=== PATIENT | male | born 2000 | race Caucasian/White ===

== ENCOUNTER 2023-01-07 12:52 | Outpatient (AMB) | payer OTHER, SELFPAY ==
[2023-01-07 13:44] VITALS: BP 130/72; PULSE 87; TEMP 36.2; O2SAT 99; BMI 17.1
--- NOTE | 2023-01-07 13:44 | AM.OFFWIN_ITS ---
Intake Vital Signs 01/07/23 13:44 Height 6 ft 1 in Weight 130 lb BMI 17.1 BP 130/72 Blood Pressure Location Lt brachial Position Sitting Pulse 87 Pulse Source Pulse Oximeter Temp 97.2 F Temp Source Temporal Artery Scan Pulse Oximetry (%) 99 Oxygen Delivery Method Room Air Intake Visit Reasons: [employer], groin pain [phone] Intake Note: pt is here for c/o groin pain Patient Tobacco Use Status: Never used Tobacco Allergies No Known Allergies Allergy (Verified 01/07/23 13:52) Do you need a note to return to daycare/school/sports/work: Yes HPI [employer], groin pain [phone] HPI Details Patient is a 22-year-old male in for a sick visit. Patient reports left-sided scrotal pain which began 6 hours prior to visit. Patient reports no difficulty urinating or numbness. Cremasteric reflex is present. No relief with scrotal support. Patient has not taken any medications. Patient reports pain increases with movement. [facility] Medical History (Updated 01/07/23 @ 14:50 by OSMEL Kennedy) Epididymitis Social History Patient Tobacco Use Status: Never used Tobacco Review of Systems Reports as per HPI Physical Exam Vital Signs: Last Vital Signs Temp 97.2 F 01/07/23 13:44 Pulse 87 01/07/23 13:44 BP 130/72 01/07/23 13:44 Pulse Ox 99 01/07/23 13:44 Oxygen Delivery Method Room Air 01/07/23 13:44 BMI result Body Mass Index 17.1 Const Orientation/consciousness: patient oriented x3 Testes: epididymal tenderness Neuro General: patient oriented x3 Assessment & Plan Assessment & Plan (1) Epididymitis: Code(s): N45.1 - Epididymitis Plan: Patient is instructed to complete course of antibiotics which will be ciprofloxacin. Patient told to take Motrin as needed for pain and swelling. Patient will complete outpatient ultrasound. Coding Level of Care Code New Pt Level 3 (76327) Diagnoses Epididymitis N45.1
== END 2023-01-07 15:13 | disposition home or self-care (01) ==
PROVIDERS: Visit Provider Nurse Practitioner Primary Care
DX: N45.1 Epididymitis (principal)
CPT/HCPCS: 99203

== ENCOUNTER 2023-02-11 11:42 | Outpatient (REF) | payer OTHER, SELFPAY ==
--- NOTE | ~2023-02-11 | US_ITS ---
EXAMINATION: US SCROTUM CLINICAL INFORMATION: Epididymitis. COMPARISON: None available. TECHNIQUE: A sonogram of the scrotum was performed assessing mccormick-scale appearance and color Doppler flow. Spectral Doppler analysis of the arterial and venous flow were performed in the testes bilaterally. FINDINGS: RIGHT: Right testicle measures 5.6 x 2.2 x 3.3 cm, volume 20.7 mL. No focal testicular parenchymal lesions are visualized. Spectral Doppler analysis of the arterial and venous flow is normal in the right testis. Right epididymal head is normal in size. No right hydrocele or varicocele is seen. Right epididymal Doppler flow is normal. LEFT: Left testicle measures 5.1 x 2.3 x 3.3 cm, volume 20.1 mL. No focal testicular parenchymal lesions are visualized. Spectral Doppler analysis of the arterial and venous flow is normal in the left testis. Left epididymal head is normal in size. No left hydrocele. Large left varicocele. Left epididymal Doppler flow is normal. US/US scrotum IMPRESSION: 1. Normal testes and epididymides. 2. Large left varicocele.
== END 2023-02-11 11:43 | disposition home or self-care (01) ==
LOC: HO.HMGCX 11:42
PROVIDERS: Visit Provider Nurse Practitioner Primary Care
DX: N45.1 Epididymitis (principal)
CPT/HCPCS: 76870